=== PATIENT | male | born 1960 | race Caucasian/White ===

== ENCOUNTER 2023-12-26 05:24 | Inpatient (IN) | payer MEDICARE, BC, SELFPAY ==
[2023-12-26] VITALS (11 sets, daily range): BP systolic 140–168; BP diastolic 72–85; PULSE 87–104; RESP 16–18; TEMP 36.2–37.2; O2SAT 93–97; BMI 29.2; BMI 29.3
--- NOTE | 2023-12-26 06:14 | CRLHL7_ITS ---
For Patients: As a result of the Century Cures Act, medical imaging exams and procedure reports are released immediately into your electronic medical record. You may view this report before your referring provider. If you have questions, please contact your health care provider. INDICATION: Abdominal pain for 3 days TECHNIQUE: Axial images were obtained from the diaphragm to the pubic symphysis. Reformats were obtained in the coronal and sagittal plane. IV Contrast: 118 cc Isovue 370 Oral Contrast: None COMPARISON: None. FINDINGS: Lower chest: Bibasilar areas of discoid atelectasis. Liver: Normal in contour with a few scattered liver hypodensities in the 2-3 millimeter range. Gallbladder and bile ducts: Status post cholecystectomy. Normal diameter common duct. Spleen: Unremarkable. Normal in size without mass. Pancreas: Unremarkable. No mass or inflammation. Adrenal glands: Left adrenal nodule measuring 10 millimeters, indeterminate. Kidneys: Symmetric renal enhancement with 2.4 centimeter right renal cyst. Subcentimeter hypodensities within the left kidney which are too small for characterization. Vasculature: Atherosclerosis without abdominal aortic aneurysm. Subcentimeter retroperitoneal lymph nodes. GI tract: Dilated loops of proximal small bowel which gradually transition across the midline. At the point of transition there is prominent inflammation from an inflamed proximal sigmoid diverticula with fat stranding and pneumoperitoneum extending into the adjacent mesentery. Subcentimeter lymph nodes within the root of the mesentery and pericolonic mesentery. Pelvis: Unremarkable. Bones: Degenerative disc disease lumbar spine with 9 millimeter anterolisthesis of L5-S1 secondary to spondylolysis at L5. IMPRESSION: 1. Perforated proximal sigmoid diverticulitis with inflammation and free air in the perisigmoid mesentery although without a drainable abscess. 2. Small-bowel obstruction secondary to inflammation from the colonic perforation. 3. Other incidental findings as detailed above. Results discussed with Dr. Mohr at 0718 on 12/26/2023 Please note that all CT scans at this facility use dose modulation, iterative reconstruction, and/or weight-based dosing when appropriate to reduce radiation dose to as low as reasonably achievable. Dictated by Raúl Cristina MD @ 12/26/2023 7:24:15 AM (Electronically Signed)
--- NOTE | 2023-12-26 06:16 | ED_ITS ---
HPI - General Adult General Chief complaint: Diarrhea Stated complaint: Vomitting, diarrhea, constipated a few days ago Time Seen by Provider: 12/26/23 06:01 Source: patient and family Mode of arrival: ambulatory Limitations: no limitations History of Present Illness HPI narrative: 63-year-old male with prior history of diverticulitis last summer presents to the emergency department for evaluation of abdominal pain for the past 3 days. 4 days ago he noted thin but soft stools. The following night, he started having suprapubic area abdominal pain combine with bloating and some mild nausea. Since his stools had been thin, he assume this was constipation and took a colonoscopy prep amount of MiraLax. This did not improve his symptoms and actually made him feel a little bit more bloated. The following morning, he started having lots of loose stools. He still did not feel better so his who recommended an enema. Based on the description, it sounds like a mineral oil enema. He continued to have lots of stools but no improvement in symptoms. Last night he started vomiting, has had to bilious episodes. He is now having more pain localized in the suprapubic/slightly to the left area of his abdomen pain. Does not radiate. No bloody stools. No dysuria, no fever. Has had some chills and sweats but has not measured his temperature, did not think he had a fever. No prior history of similar symptoms, does not feel similar to his previous bout of diverticulitis. Based on his description, it sounds like he did have a follow-up colonoscopy at [facility] last fall. It did show diverticulosis but no other abnormalities per his report. As far as abdominal surgeries, he has had a prior right inguinal hernia repair and a cholecystectomy both of which were 40 years ago and were uncomplicated. Has not had any pain medication for his symptoms today. Past medical history notable for hypertension hyperlipidemia. Home meds are hydrochlorothiazide, losartan and rosuvastatin. Nonsmoker. No drug allergies. ROS notable for the abdominal and generalized symptoms as described above only, otherwise denies times 12 systems. Related Data Home Medications ?Medication ?Instructions ?Recorded ?Confirmed atorvastatin .ROUTE 12/26/23 losartan .ROUTE 12/26/23 Allergies Allergy/AdvReac Type Severity Reaction Status Date / Time No Known Drug Allergies Allergy Verified 12/26/23 05:50 PFSH PFSH Social History Smoking Status: Never smoker How often do you have a drink containing alcohol: never AUDIT-C Alcohol total score: 0 Non-prescribed substance use: denies use Exam Const: Vital Signs, click to edit/add: Vital Signs - 24 hr 12/26/23 05:45 Temperature 97.2 F L Pulse Rate [Pulse Oximeter] 104 H Respiratory Rate 16 Blood Pressure [Ri ght Upper Arm] 154/83 H Pulse Oximetry 97 Oxygen Delivery Me thod Room Air Documenting provider has reviewed patient's vital signs: yes Common normals: no apparent distress and alert General appearance: cooperative and well kempt HENMT: Common normals: normocephalic and oropharynx normal Head and scalp: normocephalic Face and sinus: normal facial exam Throat: posterior oropharynx normal Eye: Common normals: EOMs intact bilaterally, conjunctivae normal and no scleral icterus General eye: normal appearance of both eyes Conjunctiva: conjunctiva(e) normal Neck & C-Spine: Common normals: full ROM and no lymphadenopathy Resp: Common normals: normal respiratory effort, no use of accessory muscles and clear to auscultation bilaterally Effort & inspection: able to speak in complete sentences Auscultation: clear to auscultation bilaterally Cardio: Common normals: regular rate, regular rhythm, S1 normal heart sound, S2 normal heart sound and no murmurs Rate: regular rate Rhythm: regular rhythm Heart sounds: S1 normal and S2 normal GI: Other: Abdomen slightly distended. Bowel sounds are hyperactive in all 4 quadrants but equal. There is tenderness to palpation of the suprapubic and left lower quadrant area. Mild guarding but no rebound tenderness. No obvious mass. Cannot palpate edges of liver well. : Common normals: no CVA tenderness Bladder/kidney exam: no CVA tenderness Back & Pelvis: Common normals: no CVA tenderness and thoracic and lumbar spine normal to inspection Extremity: Common normals: normal to inspection, normal capillary refill and no pedal edema Neuro: Sensorium/orientation: alert Speech: speech normal Gait (neuro): normal gait Motor exam: no tremor noted and no movement abnormalities noted Psych: Appearance: well kempt Attitude: engaged Activity/motor behavior: appropriate eye contact Thought content: normal thought content Attention/concentration: attention grossly intact Memory/cognition: memory grossly intact Insight: insight good Judgement: judgment good Skin: Common normals: no rashes or lesions noted General skin exam: no rashes or lesions noted Course Course ED Course: 63-year-old male with lower abdominal pain suspicious for diverticulitis. Differential diagnosis also including appendicitis, obstruction, pancreatitis, colitis, nephrolithiasis, urinary infection, musculoskeletal etiology, radiculopathy, among others. Will place peripheral IV, began normal saline due to the vomiting. Give Zofran and Dilaudid, CT. Typical labs and urinalysis. Await findings. Reevaluation(s) Time of Reevaluation #1: 07:30 Reevaluation #1: Leukocytosis noted on labs otherwise labs as expected. CT showing perforated sigmoid diverticulitis, contained no abscess. Also SBO. Discussed with patient. Discussed with on-call surgeon. Will start ertapenem, sips of clear liquids only, maintenance fluids. Will admit to hospital, hospitalist contacted and accepts admission. Vital Signs Vital signs: Initial Vital Signs Temperature 97.2 F L 12/26/23 05:45 Temperature Source Temporal Artery Scan 12/26/23 05:45 Pulse Rate 104 H 12/26/23 05:45 Respiratory Rate 16 12/26/23 05:45 Blood Pressure 154/83 H 12/26/23 05:45 Blood Pressure Mean 106 H 12/26/23 05:45 Blood Pressure Position Sitting 12/26/23 05:45 Pulse Oximetry 97 12/26/23 05:45 Oxygen Delivery Method Room Air 12/26/23 05:45 Vital Signs Temperature 97.2 F L 12/26/23 05:45 Pulse Rate 104 H 12/26/23 05:45 Respiratory Rate 16 12/26/23 05:45 Blood Pressure 154/83 H 12/26/23 05:45 Pulse Oximetry 97 12/26/23 05:45 Oxygen Delivery Method Room Air 12/26/23 05:45 Temperature 97.2 F L 12/26/23 05:45 Pulse Rate 104 H 12/26/23 05:45 Respiratory Rate 16 12/26/23 05:45 Blood Pressure 154/83 H 12/26/23 05:45 Pulse Oximetry 97 12/26/23 05:45 Oxygen Delivery Method Room Air 12/26/23 05:45 Medications Administered Medications: Discontinued Medications Generic Name Dose Route Start Last Admin Trade Name Freq PRN Reason Stop Dose Admin Hydromorphone HCl 0.5 mg 12/26/23 06:14 12/26/23 06:34 Hydromorphone 0.5 Mg/0.5 Ml Inj IVP 12/26/23 06:15 0.5 mg ONCE ONE Administration Sodium Chloride 1,000 mls @ 1,000 mls/hr 12/26/23 06:15 12/26/23 06:35 0.9 % Sodium Chloride 1000 Ml IV 12/26/23 07:14 1,000 mls/hr .Q1H RUBY Administration Ondansetron HCl 4 mg 12/26/23 06:14 12/26/23 06:34 Ondansetron 2 Mg/Ml Inj IVP 12/26/23 06:15 4 mg ONCE ONE Administration Medical Decision Making Lab Data Lab results reviewed: Yes I reviewed the patient's lab results Lab results narrative: Leukocytosis with left shift. Normal lipase and liver enzymes, normal hemoglobin and creatinine. Labs: Lab Results 12/26/23 12/26/23 12/26/23 Range/Units : 06:25 Unknown WBC 17.15 H (4.50-11.00) K/uL RBC 4.89 (4.30-5.90) m/uL Hgb 14.8 (13.5-17.5) gm/dL Hct 44.1 (37.0-53.0) % MCV 90 (80-100) fL MCH 30 (26-34) pg MCHC 34 (32-36) gm/dL RDW Coeff of Adriana 13.2 (11.5-15.5) % Plt Count 298 (140-440) K/uL Neut % (Auto) 82.5 H (42.0-72.0) % Lymph % (Auto) 9.4 L (20-44) % [place] % (Auto) 7.6 (0.0-11.0) % Eos % (Auto) 0.1 (0.0-7.0) % Baso % (Auto) 0.1 (0.0-3.0) % Neut # (Auto) 14.10 H (1.7-7.0) K/uL Lymph # (Auto) 1.60 (0.90-2.90) K/uL [place] # (Auto) 1.30 H (0.00-0.90) K/UL Eos # (Auto) 0.00 (0.00-0.50) K/uL Baso # (Auto) 0.00 (0.00-0.30) K/uL Abs Immat Gran (auto) 0.10 (0.00-0.30) K/uL Imm/Tot Granulo (auto) 0.3 % Sodium 135 (135-149) mmol/L Potassium 3.5 L (3.6-5.1) mmol/L Chloride 94 L (96-114) mmol/L Carbon Dioxide 29 (20-32) mmol/L Anion Gap 12 (7-15) mEq/L BUN 17 (7-30) mg/dL Creatinine 1.1 (0.5-1.5) mg/dL Estimated Creat Clear 82.20 Estimated GFR 75 ml/min Glucose 139 H (60-115) mg/dL Lactate 1.6 (0.5-1.9) mmol/L Calcium 9.8 (8.4-10.6) mg/dL Total Bilirubin 1.5 (0.1-1.5) mg/dL AST 21 (12-35) U/L ALT 29 (4-50) U/L Alkaline Phosphatase 60 (40-150) U/L Total Protein 8.7 H (6.0-8.3) g/dL Albumin 4.9 (3.3-5.0) g/dL Lipase 18 L (23-300) U/L Urine Color Yellow (Yellow) Urine Appearance Clear (Clear) Urine pH 6.5 (5.0-8.5) Ur Specific [place] 1.020 (1.000-1.030) Urine Protein 2+ A (Negative) Urine Glucose (UA) Negative (Negative) Urine Ketones 1+ A (Negative) Urine Blood 1+ A (Negative) Urine Nitrite Negative (Negative) Urine Bilirubin 1+ A (Negative) Urine Urobilinogen 1.0 (0.2-1.0) Ur Leukocyte Esterase Negative (Negative) Urine RBC 5-10 A (0-2) Urine WBC 0-2 (0-5) Ur Squamous Epith Cells None (None-Few) Urine Bacteria None (None) POC Creatinine 1.3 (0.6-1.3) mg/dl Imaging Data CT scan - abdomen: Attestation: I have reviewed the pertinent imaging results. My impression: SBO and diverticulitis Radiologist's impression: IMPRESSION: 1. Perforated proximal sigmoid diverticulitis with inflammation and free air in the perisigmoid mesentery although without a drainable abscess. 2. Small-bowel obstruction secondary to inflammation from the colonic perforation. 3. Other incidental findings as detailed above. Discharge Plan Discharge Clinical Impression: Diverticulitis of colon with perforation, Partial small bowel obstruction Patient Disposition: Admitted As Inpatient
[2023-12-26 06:29] LABS: Appearance Urine Clear (Clear); Bilirubin Urine 1+ (Negative); Blood Urine 1+ (Negative); Color Urine Yellow (Yellow); Glucose Urine Negative (Negative); Ketones Urine 1+ (Negative); Leukocyte Esterase Urine Negative (Negative); Nitrite Urine Negative (Negative); Protein Urine 2+ (Negative); pH Urine 6.5 (5.0-8.5)
[2023-12-26] MEDS: HYDROmorphone 0.5 mg/0.5 ml inj IVP (06:34)
[2023-12-26] MEDS: ONDANSETRON 2 MG/ML inj 4 MG IVP ×2 (06:34→12:48)
[2023-12-26 06:35] LABS: Lactate* 1.6 mmol/L (0.5-1.9)
[2023-12-26 06:35] LABS: Creatinine, Point-of-Care* 1.3 mg/dl (0.6-1.3)
[2023-12-26] MEDS: 0.9 % SODIUM CHLORIDE 1000 ml 1,000 ML IV (06:35)
[2023-12-26 06:36] LABS: Basophils Percent Auto 0.1 % (0.0-3.0); Eosinophils Percent Auto 0.1 % (0.0-7.0); Hematocrit 44.1 % (37.0-53.0); Hemoglobin* 14.8 gm/dL (13.5-17.5); Immature Granulocytes Pct Auto 0.3 %; Lymphocytes Percent Auto 9.4 % (20-44); Mean Corpuscular HGB Conc 34 gm/dL (32-36); Mean Corpuscular Hemoglobin 30 pg (26-34); Mean Corpuscular Volume 90 fL (80-100); Monocytes Percent Auto 7.6 % (0.0-11.0); Neutrophils Percent Auto 82.5 % (42.0-72.0); Platelet Count* 298 K/uL (140-440); RDW Coefficient of Variation % 13.2 % (11.5-15.5); Red Blood Count 4.89 m/uL (4.30-5.90); White Blood Count* 17.15 K/uL (4.50-11.00)
[2023-12-26 06:37] LABS: Slide Review Reflex No
[2023-12-26 06:51] LABS: Albumin* 4.9 g/dL (3.3-5.0); Chloride* 94 mmol/L (96-114); Sodium* 135 mmol/L (135-149)
[2023-12-26 06:52] LABS: Potassium* 3.5 mmol/L (3.6-5.1)
[2023-12-26 06:53] LABS: Creatinine* 1.1 mg/dL (0.5-1.5); Estimated Glomerular Filt Rate 75 ml/min
[2023-12-26 06:54] LABS: Alkaline Phosphatase* 60 U/L (40-150); Anion Gap 12 mEq/L (7-15); Aspartate Amino Transferase* 21 U/L (12-35); Bilirubin Total* 1.5 mg/dL (0.1-1.5); Blood Urea Nitrogen* 17 mg/dL (7-30); Carbon Dioxide* 29 mmol/L (20-32); Lipase* 18 U/L (23-300); Total Protein* 8.7 g/dL (6.0-8.3)
[2023-12-26 06:55] LABS: Alanine Aminotransferase* 29 U/L (4-50); Calcium* 9.8 mg/dL (8.4-10.6); Glucose* 139 mg/dL (60-115)
[2023-12-26 07:11] LABS: Procalcitonin* 0.43 ng/mL (<0.50)
[2023-12-26 07:26] LABS: WBC Urine 0-2 (0-5)
[2023-12-26] MEDS: ERTAPENEM 1 GM in 0.9 % SODIUM CHLORIDE Mini-bag 100 ML IVPB (07:34)
[2023-12-26 07:51] LABS: C Reactive Protein* 29.2 mg/dL (0.5-1.0)
[2023-12-26] MEDS: LACTATED RINGERS 1000 ML 1,000 ML 150 ML IV (07:57)
[2023-12-26] MEDS: PANTOPRAZOLE SODIUM 40 MG INJ IVP (09:33)
[2023-12-26] MEDS: MORPHINE 4 MG/ML INJ IVP ×3 (09:33→18:34)
[2023-12-26] MEDS: LOSARTAN POTASSIUM 50 MG TABLET PO ×2 (09:48→20:43)
--- NOTE | 2023-12-26 10:13 | PM.IMHP1 ---
Hospitalist- H&P: HPI History of Present Illness Date Seen: 12/26/23 Chief complaint: Vomitting, diarrhea, constipated a few days ago Narrative: Burt Corbin is a 63 year old male past medical history significant for hypertension, hyperlipidemia, cholecystectomy and hernia repair 35 years ago is admitted to the medical floor from the ED for further management small bowel obstruction and perforated proximal sigmoid diverticulitis. Patient is seen with at bedside. Patient reports a 4 day history of abdominal pain without a bowel movement. Assumed he was constipated so began taking stool softeners and an enema. Has since had several loose stools. The abdominal pain persisted. Started vomiting last night. His made him come to the ED. Pain is now somewhat improved. Nausea has improved. No further vomiting since admission. Denies headache or dizziness. Denies chest pain or shortness of breath. No recent fevers. Quit smoking 7-8 years ago. Rare alcohol use. Retired from [employer]. Significant hearing loss related to that job. Cholecystectomy and hernia repair 35 years ago. Denies anesthesia complications. No known personal or family history of bleeding disorders. In the ED, CT shows small-bowel obstruction with perforated proximal sigmoid diverticulitis. WBC 17.15 with left shift, lactate 1.6, procalcitonin 0.43. The ED provider discussed with General surgery, Dr. Estrada, recommending admission with IVF, IV antibiotics, bedside consult later today. Review of Systems Narrative: REVIEW OF SYSTEMS: Complete review of systems performed and negative unless otherwise stated in HPI or below. [facility] Medical History (Updated 12/26/23 @ 10:49 by Michaela Ann PA-C) Hyperlipidemia ?E78.5 - Hyperlipidemia, unspecified (ICD-10) Hypertension ?I10 - Essential (primary) hypertension (ICD-10) Surgical History (Updated 12/26/23 @ 10:40 by Michaela Ann PA-C) H/O hernia repair ?Z98.890 - Other specified postprocedural states (ICD-10) ?Z87.19 - Personal history of other diseases of the digestive system (ICD-10) History of cholecystectomy ?Z90.49 - Acquired absence of other specified parts of digestive tract (ICD-10) Social History What is your current living situation?: I presently have a place to live Problems where you live: no known problems Problems where you live details: N/A In the past 12 months, utilities in danger of being shut off: no In past 12 months, lack of transportation kept you from medical appts, meetings, work, or getting things needed for daily living: no In the past 12 mos, have been you worried that your food would run out before you had money to buy more?: never true In the past 12 mos, the food you bought just didn't last and you didn't have money to buy more?: never true Smoking Status: Former smoker How often do you have a drink containing alcohol: monthly or less AUDIT-C Alcohol total score: 1 Non-prescribed substance use: denies use How often does anyone, including family, friends and others, physically hurt you: never How often does anyone, including family, friends and others, insult or talk down to you: never How often does anyone, including family, friends and others, threaten you with harm: never How often does anyone, including family, friends and others, scream or curse at you: never Meds Home Medications and Allergies Home Medications ?Medication ?Instructions ?Recorded ?Confirmed ?Type aspirin 325 mg tablet,delayed 325 mg PO DAILY 12/26/23 12/26/23 History release hydrochlorothiazide 12.5 mg tablet 12.5 mg PO DAILY 12/26/23 12/26/23 History losartan 50 mg tablet 50 mg PO BID 12/26/23 12/26/23 History rosuvastatin 5 mg tablet 5 mg PO DAILY 12/26/23 12/26/23 History Allergies Allergy/AdvReac Type Severity Reaction Status Date / Time No Known Drug Allergies Allergy Verified 12/26/23 05:50 Exam Narrative: Exam Narrative: PHYSICAL EXAM General: Pleasant, conversant, NAD HEENT: Normocephalic, atraumatic, sclera white, EOMI, oral mucosa moist Cardiovascular: RRR, S1S2. No pitting edema Pulmonary: CTA bilaterally without rhonchi, rales, expiratory wheezes. No dyspnea on room air Abdominal: Soft, mildly distended, tender left side Neurological: Alert, answering questions appropriately, cranial nerves intact, no focal findings Extremities: No gross joint deformity or swelling. AROMI. Neurovascularly intact Skin: Warm, dry. Const: Vital Signs, click to edit/add: Vital Signs - 24 hr 12/26/23 05:45 12/26/23 07:36 12/26/23 08:32 Temperature 97.2 F L Pulse Rate Pulse Rate [Pulse Oximeter] 104 H 91 Pulse Rate [orthos tatic lying Pulse Oximeter] Pulse Rate [orthos tatic sitting Puls e Oximeter] Pulse Rate [orthos tatic standing Pul se Oximeter] Respiratory Rate 16 18 Blood Pressure [Ri ght Upper Arm] 154/83 H 150/79 H Blood Pressure [or thostatic lying Le ft Arm] Blood Pressure [or thostatic sitting Left Arm] Blood Pressure [or thostatic standing Left Arm] Pulse Oximetry 97 95 97 [facility] Room Air Room Air 12/26/23 09:06 12/26/23 09:08 Temperature Pulse Rate 89 Pulse Rate [Pulse Oximeter] Pulse Rate [orthos tatic lying Pulse Oximeter] 88 Pulse Rate [orthos tatic sitting Puls e Oximeter] 90 Pulse Rate [orthos tatic standing Pul se Oximeter] 94 Respiratory Rate Blood Pressure [Ri ght Upper Arm] Blood Pressure [or thostatic lying Le ft Arm] 148/80 H Blood Pressure [or thostatic sitting Left Arm] 156/85 H Blood Pressure [or thostatic standing Left Arm] 168/82 H Pulse Oximetry Oxygen Delivery [facility] Hospitalist - H&P: Result Labs Labs: Short CBC 12/26/23 Range/Units Unknown WBC 17.15 H (4.50-11.00) K/uL Hgb 14.8 (13.5-17.5) gm/dL Hct 44.1 (37.0-53.0) % Plt Count 298 (140-440) K/uL BMP 12/26/23 Unknown Sodium 135 Potassium 3.5 L Chloride 94 L Carbon Dioxide 29 BUN 17 Creatinine 1.1 Glucose 139 H Calcium 9.8 Liver Function 12/26/23 Range/Units Unknown Total Bilirubin 1.5 (0.1-1.5) mg/dL AST 21 (12-35) U/L ALT 29 (4-50) U/L Alkaline Phosphatase 60 (40-150) U/L Albumin 4.9 (3.3-5.0) g/dL Urine 12/26/23 Range/Units 06:21 Urine Color Yellow (Yellow) Urine Appearance Clear (Clear) Urine pH 6.5 (5.0-8.5) Ur Specific [place] 1.020 (1.000-1.030) Urine Protein 2+ A (Negative) Urine Glucose (UA) Negative (Negative) Imaging CT scan - abdomen: Attestation: I have reviewed the pertinent imaging results. Radiologist's impression: FINDINGS: Lower chest: Bibasilar areas of discoid atelectasis. Liver: Normal in contour with a few scattered liver hypodensities in the 2-3 millimeter range. Gallbladder and bile ducts: Status post cholecystectomy. Normal diameter common duct. Spleen: Unremarkable. Normal in size without mass. Pancreas: Unremarkable. No mass or inflammation. Adrenal glands: Left adrenal nodule measuring 10 millimeters, indeterminate. Kidneys: Symmetric renal enhancement with 2.4 centimeter right renal cyst. Subcentimeter hypodensities within the left kidney which are too small for characterization. Vasculature: Atherosclerosis without abdominal aortic aneurysm. Subcentimeter retroperitoneal lymph nodes. GI tract: Dilated loops of proximal small bowel which gradually transition across the midline. At the point of transition there is prominent inflammation from an inflamed proximal sigmoid diverticula with fat stranding and pneumoperitoneum extending into the adjacent mesentery. Subcentimeter lymph nodes within the root of the mesentery and pericolonic mesentery. Pelvis: Unremarkable. Bones: Degenerative disc disease lumbar spine with 9 millimeter anterolisthesis of L5-S1 secondary to spondylolysis at L5. IMPRESSION: 1. Perforated proximal sigmoid diverticulitis with inflammation and free air in the perisigmoid mesentery although without a drainable abscess. 2. Small-bowel obstruction secondary to inflammation from the colonic perforation. 3. Other incidental findings as detailed above. Assessment and Plan Assessment and plan (1) Diverticulitis of colon with perforation: Problem comment: Abdominal pain, nausea with vomiting, induced diarrhea CT shows perforated proximal sigmoid diverticulitis with inflammation and free air in the perisigmoid mesentery although without a drainable abscess Leukocytosis with left shift, lactate and procalcitonin WNL, CRP 29.2, LFTs unremarkable, lipase 18, creatinine at baseline, BUN 17, afebrile ED provider discussed with General surgery, Dr. Estrada - bedside consult later today IVF, NPO for now Continue IV ertapenem Pain and nausea management as needed SCDs for VTE PPX, avoiding enoxaparin for now. Hold daily aspirin (he does not actually have a reason he takes this) Status: Acute (2) Small bowel obstruction: Problem comment: CT shows small-bowel obstruction secondary to inflammation from the colonic perforation Management as above Status: Acute (3) Hypertension: Problem comment: Continue losartan, hold HCTZ (creatinine 1.1, baseline 0.8-1.0) Status: Acute (4) Hyperlipidemia: Problem comment: Continue statin Status: Acute Plan Continue IV antibiotics, IVF, NPO for now. Await general surgery consultation. Total Time Spent Total Time Spent: Total time spent caring for the patient today was 60 minutes. This includes time spent for the visit reviewing the chart, time spent during the visit, time spent after the visit and documentation and planning in coordination of care.
--- NOTE | 2023-12-26 14:32 | PM.GSCN ---
History of Present Illness Consult details Date Seen: 12/26/23 Consult date: 12/26/23 Narrative: 63-year-old male was admitted to the hospital with abdominal pain. Patient states that he developed suprapubic abdominal pain last Friday. The pain was ?a lot?. He thought that he was constipated and on Friday took GoLYTELY prep. That initially did not help much and he also did an enema. He started to have bowel movements and had multiple liquid bowel movements since Friday. He had loose stools yesterday and had 1 today in the hospital. Yesterday, he was not passing gas but today had a couple of episodes of passing gas. Patient did not take his temperature at home. His abdominal pain was not improving and he had no appetite. He tried to eat soup yesterday but then was vomiting all night. He decided to come into the emergency room. His emergency room workup was personally reviewed by me. He was found to have an elevated WBC of 17. He CRP was 29. An abdominal CT was obtained that showed perforated sigmoid diverticulitis in the proximal sigmoid colon with a focus of free air in the perisigmoid mesentery. His proximal small bowel is dilated with possible transition point near the perforation. Patient had a colonoscopy 1 year ago and was found to have diverticulosis. He did not have any polyps removed. This is patient's first episode of diverticulitis. Review of Systems Narrative: General: no fevers HENT: no problems swallowing CV: no shortness of breath Resp: no cough GI: No nausea, vomiting, abdominal pain : no dysuria, no increased urinary frequency, no hematuria Skin: no new rashes Musculoskeletal: no back pain Neuro: no muscle weakness Psyche: no depression, no anxiety PFSH PFSH Medical History Hyperlipidemia ?E78.5 - Hyperlipidemia, unspecified (ICD-10) Hypertension ?I10 - Essential (primary) hypertension (ICD-10) Surgical History H/O hernia repair ?Z98.890 - Other specified postprocedural states (ICD-10) ?Z87.19 - Personal history of other diseases of the digestive system (ICD-10) History of cholecystectomy ?Z90.49 - Acquired absence of other specified parts of digestive tract (ICD-10) Social History (Updated 12/26/23 @ 14:38 by Soy Estrada MD) Narrative: Patient is visiting his fiancee but lives [place] of [facility]. What is your current living situation?: I presently have a place to live Problems where you live: no known problems Problems where you live details: N/A In the past 12 months, utilities in danger of being shut off: no In past 12 months, lack of transportation kept you from medical appts, meetings, work, or getting things needed for daily living: no In the past 12 mos, have been you worried that your food would run out before you had money to buy more?: never true In the past 12 mos, the food you bought just didn't last and you didn't have money to buy more?: never true Smoking Status: Former smoker How often do you have a drink containing alcohol: monthly or less AUDIT-C Alcohol total score: 1 Non-prescribed substance use: denies use How often does anyone, including family, friends and others, physically hurt you: never How often does anyone, including family, friends and others, insult or talk down to you: never How often does anyone, including family, friends and others, threaten you with harm: never How often does anyone, including family, friends and others, scream or curse at you: never Meds Home Medications and Allergies Home Medications ?Medication ?Instructions ?Recorded ?Confirmed ?Type aspirin 325 mg tablet,delayed 325 mg PO DAILY 12/26/23 12/26/23 History release hydrochlorothiazide 12.5 mg tablet 12.5 mg PO DAILY 12/26/23 12/26/23 History losartan 50 mg tablet 50 mg PO BID 12/26/23 12/26/23 History rosuvastatin 5 mg tablet 5 mg PO DAILY 12/26/23 12/26/23 History Allergies Allergy/AdvReac Type Severity Reaction Status Date / Time No Known Drug Allergies Allergy Verified 12/26/23 05:50 Exam Narrative: Exam Narrative: General appearance: Alert, cooperative, and in no distress Pulmonary: Chest symmetric, lungs clear bilaterally Cardiovascular Heart: Regular rate and rhythm, S1, S2, no murmurs/rubs/gallops Gastrointestinal Abdominal: soft, distended, tender to palpation mostly in the upper abdomen. Skin: Normal skin color, texture, and turgor. No rashes or lesions. Psychiatric: Alert, cooperative, normal affect. Const: Vital Signs, click to edit/add: Vital Signs - 24 hr 12/26/23 05:45 12/26/23 07:36 12/26/23 08:15 Temperature 97.2 F L 98 F Pulse Rate Pulse Rate [Apical ] 89 Pulse Rate [Pulse Oximeter] 104 H 91 Pulse Rate [orthos tatic lying Pulse Oximeter] Pulse Rate [orthos tatic sitting Puls e Oximeter] Pulse Rate [orthos tatic standing Pul se Oximeter] Respiratory Rate 16 18 18 Blood Pressure [Le ft Arm] 160/77 H Blood Pressure [Ri ght Upper Arm] 154/83 H 150/79 H Blood Pressure [or thostatic lying Le ft Arm] Blood Pressure [or thostatic sitting Left Arm] Blood Pressure [or thostatic standing Left Arm] Pulse Oximetry 97 95 97 Oxygen Delivery Me thod Room Air Room Air Room Air 12/26/23 08:15 12/26/23 08:32 12/26/23 09:06 Temperature Pulse Rate 89 Pulse Rate [Apical ] Pulse Rate [Pulse Oximeter] Pulse Rate [orthos tatic lying Pulse Oximeter] Pulse Rate [orthos tatic sitting Puls e Oximeter] Pulse Rate [orthos tatic standing Pul se Oximeter] Respiratory Rate 18 Blood Pressure [Le ft Arm] Blood Pressure [Ri ght Upper Arm] Blood Pressure [or thostatic lying Le ft Arm] Blood Pressure [or thostatic sitting Left Arm] Blood Pressure [or thostatic standing Left Arm] Pulse Oximetry 97 97 Oxygen Delivery Me thod Room Air Room Air 12/26/23 09:08 Temperature Pulse Rate Pulse Rate [Apical ] Pulse Rate [Pulse Oximeter] Pulse Rate [orthos tatic lying Pulse Oximeter] 88 Pulse Rate [orthos tatic sitting Puls e Oximeter] 90 Pulse Rate [orthos tatic standing Pul se Oximeter] 94 Respiratory Rate Blood Pressure [Le ft Arm] Blood Pressure [Ri ght Upper Arm] Blood Pressure [or thostatic lying Le ft Arm] 148/80 H Blood Pressure [or thostatic sitting Left Arm] 156/85 H Blood Pressure [or thostatic standing Left Arm] 168/82 H Pulse Oximetry Oxygen Delivery Me thod Results Labs Labs: Abnormal lab results 12/26/23 12/26/23 Range/Units 06:21 Unknown WBC 17.15 H (4.50-11.00) K/uL Neut % (Auto) 82.5 H (42.0-72.0) % Lymph % (Auto) 9.4 L (20-44) % Neut # (Auto) 14.10 H (1.7-7.0) K/uL Howell # (Auto) 1.30 H (0.00-0.90) K/UL Potassium 3.5 L (3.6-5.1) mmol/L Chloride 94 L (96-114) mmol/L Glucose 139 H (60-115) mg/dL C-Reactive Protein 29.2 H (0.5-1.0) mg/dL Total Protein 8.7 H (6.0-8.3) g/dL Lipase 18 L (23-300) U/L Urine Protein 2+ A (Negative) Urine Ketones 1+ A (Negative) Urine Blood 1+ A (Negative) Urine Bilirubin 1+ A (Negative) Urine RBC 5-10 A (0-2) Diabetes panel 12/26/23 Range/Units Unknown Sodium 135 (135-149) mmol/L Potassium 3.5 L (3.6-5.1) mmol/L Chloride 94 L (96-114) mmol/L Carbon Dioxide 29 (20-32) mmol/L BUN 17 (7-30) mg/dL Creatinine 1.1 (0.5-1.5) mg/dL Glucose 139 H (60-115) mg/dL Calcium 9.8 (8.4-10.6) mg/dL AST 21 (12-35) U/L ALT 29 (4-50) U/L Alkaline Phosphatase 60 (40-150) U/L Total Protein 8.7 H (6.0-8.3) g/dL Albumin 4.9 (3.3-5.0) g/dL Calcium panel 12/26/23 Range/Units Unknown Calcium 9.8 (8.4-10.6) mg/dL Albumin 4.9 (3.3-5.0) g/dL Pituitary panel 12/26/23 Range/Units Unknown Sodium 135 (135-149) mmol/L Potassium 3.5 L (3.6-5.1) mmol/L Chloride 94 L (96-114) mmol/L Carbon Dioxide 29 (20-32) mmol/L BUN 17 (7-30) mg/dL Creatinine 1.1 (0.5-1.5) mg/dL Glucose 139 H (60-115) mg/dL Calcium 9.8 (8.4-10.6) mg/dL Adrenal panel 12/26/23 Range/Units Unknown Sodium 135 (135-149) mmol/L Potassium 3.5 L (3.6-5.1) mmol/L Chloride 94 L (96-114) mmol/L Carbon Dioxide 29 (20-32) mmol/L BUN 17 (7-30) mg/dL Creatinine 1.1 (0.5-1.5) mg/dL Glucose 139 H (60-115) mg/dL Calcium 9.8 (8.4-10.6) mg/dL Total Bilirubin 1.5 (0.1-1.5) mg/dL AST 21 (12-35) U/L ALT 29 (4-50) U/L Alkaline Phosphatase 60 (40-150) U/L Total Protein 8.7 H (6.0-8.3) g/dL Albumin 4.9 (3.3-5.0) g/dL All other labs normal. Progress Note:A&P Assessment and plan (1) Diverticulitis of colon with perforation: Status: Acute Assessment and Plan: 63-year-old male presents with complicated sigmoid diverticulitis and reactive small bowel obstruction. I discussed with the patient and his fiancee his laboratory and CT findings. His CT showed a contained focus of free air in the adjacent mesentery. His small bowel is most likely walling that air off, resulting in reactive small-bowel obstruction. We will continue IV antibiotics and NPO. Patient is passing gas and had a bowel movement today however, I recommended to place NG tube to allow bowel rest. Will repeat his WBC tomorrow. For now I would recommend to continue with conservative management. I discussed with the patient that if there are no changes overnight, one of my surgery partners will see him over the weekend.
--- NOTE | 2023-12-26 14:52 | CRLHL7_ITS ---
For Patients: As a result of the Century Cures Act, medical imaging exams and procedure reports are released immediately into your electronic medical record. You may view this report before your referring provider. If you have questions, please contact your health care provider. INDICATION: Nasogastric tube placement. COMPARISON: Same day CT abdomen and pelvis. TECHNIQUE: AP portable radiograph centered on the upper abdomen and lower chest, excluding the lower abdomen/pelvis and lateral aspect of the abdomen on the right and left. FINDINGS: Nasogastric tube positioned with its radiolucent side hole at the gastroesophageal junction and its tip 7.5 cm beyond. The tube can be advanced (e.g. 5 cm). Clustered loops of dilated small bowel are noted incidentally in the left upper abdomen. IMPRESSION: Nasogastric tube positioned with its radiolucent side hole at the gastroesophageal junction and its tip 7.5 cm beyond. The tube can be advanced (e.g. 5 cm). Dictated by Amilcar Palma MD @ 12/26/2023 3:23:57 PM (Electronically Signed)
[2023-12-26] MEDS: LACTATED RINGERS 1000 ML 1,000 ML 125 ML IV ×2 (16:00→22:51)
[2023-12-26] MEDS: ROSUVASTATIN CALCIUM 10 MG TABLET 5 MG PO (20:43)
[2023-12-27] VITALS (7 sets, daily range): BP systolic 142–157; BP diastolic 68–82; PULSE 80–90; RESP 18; TEMP 36.3–37.2; O2SAT 92–96
[2023-12-27] MEDS: SODIUM CHLORIDE 0.9 % (FLUSH) 10 ML SYRINGE 5 ML IVF ×2 (02:42→09:35)
[2023-12-27] MEDS: MORPHINE 4 MG/ML INJ IVP (02:42)
--- NOTE | 2023-12-27 05:26 | PC.NURSE ---
Shift note: Pt continue on NG tube suction intermittently. NG tube at 60cm ana. About 200ml of greenish gastric content suctioned tonight. Abdomen appeared distended. No fever, nausea and vomiting recorded. Minimal pain level of 5 reported and PRN given as ordered. Pt had adequate sleep. NPO status maintained.
[2023-12-27 06:39] LABS: Hematocrit 36.8 % (37.0-53.0); Hemoglobin* 12.2 gm/dL (13.5-17.5); Mean Corpuscular HGB Conc 33 gm/dL (32-36); Mean Corpuscular Hemoglobin 30 pg (26-34); Mean Corpuscular Volume 91 fL (80-100); Platelet Count* 281 K/uL (140-440); Red Blood Count 4.06 m/uL (4.30-5.90); White Blood Count* 7.25 K/uL (4.50-11.00)
[2023-12-27 06:57] LABS: Chloride* 101 mmol/L (96-114); Potassium* 3.3 mmol/L (3.6-5.1); Sodium* 135 mmol/L (135-149)
[2023-12-27 06:59] LABS: Creatinine* 0.9 mg/dL (0.5-1.5); Est. Creatinine Clearance* 90.42; Estimated Glomerular Filt Rate 95 ml/min; Lipase* 24 U/L (23-300)
[2023-12-27 07:00] LABS: Anion Gap 8 mEq/L (7-15); Blood Urea Nitrogen* 19 mg/dL (7-30); Calcium* 8.7 mg/dL (8.4-10.6); Carbon Dioxide* 26 mmol/L (20-32); Glucose* 101 mg/dL (60-115)
[2023-12-27 07:01] LABS: Slide Review Reflex No
[2023-12-27 07:21] LABS: C Reactive Protein* 14.7 mg/dL (0.5-1.0)
[2023-12-27] MEDS: LACTATED RINGERS 1000 ML 1,000 ML 125 ML IV ×2 (07:30→18:12)
[2023-12-27] MEDS: PANTOPRAZOLE SODIUM 40 MG INJ IVP (09:34)
[2023-12-27] MEDS: LOSARTAN POTASSIUM 50 MG TABLET PO ×2 (09:34→20:48)
[2023-12-27] MEDS: ERTAPENEM 1 GM in 0.9 % SODIUM CHLORIDE Mini-bag 100 ML IVPB (09:35)
--- NOTE | 2023-12-27 11:36 | PM.GSPN ---
Subjective Subjective Date Seen: 12/27/23 Interval history: Patient is doing much better this morning. Denies any abdominal pain. He hasn't needed pain medicine since 3am. He has been walking the halls. Is passing gas and having liquid stool. Denies any nausea. Is feeling hungry. Exam Narrative: Exam Narrative: General: Alert and oriented, no acute distress. Nontoxic Abdomen: Soft, nontender to palpation. No distention. Active bowel sounds Const: Vital Signs, click to edit/add: Vital Signs - 24 hr 12/26/23 15:00 12/26/23 15:00 12/26/23 15:00 Temperature 98.0 F Pulse Rate 96 Pulse Rate [Apical ] 96 96 Respiratory Rate 18 18 Blood Pressure [Le ft Arm] 152/79 H Pulse Oximetry 94 Oxygen Delivery Me thod Room Air 12/26/23 19:00 12/26/23 22:47 12/26/23 22:47 Temperature 98.9 F 98.2 F Pulse Rate Pulse Rate [Apical ] 95 96 96 Respiratory Rate 18 18 18 Blood Pressure [Le ft Arm] 146/78 H 140/72 H Pulse Oximetry 93 93 Oxygen Delivery Me thod Room Air Room Air 12/26/23 23:00 12/27/23 02:38 Temperature 98.2 F Pulse Rate 92 Pulse Rate [Apical ] 90 Respiratory Rate 18 Blood Pressure [Le ft Arm] 153/72 H Pulse Oximetry 94 Oxygen Delivery Me thod Room Air Labs/Imaging Labs Labs: Leukocytosis has improved (17--7). CRP trending down (29--14) Imaging Imaging: No new imaging. Progress Note:A&P Assessment and plan (1) Small bowel obstruction: Status: Acute (2) Diverticulitis of colon with perforation: Status: Acute Plan Patient is hospital day 2 for diverticulitis complicated by contained perforation and associated small-bowel obstruction. An NG tube was placed on admission. Overnight patient with improved abdominal pain. Minimal NG tube output this morning, which is clear in appearance. He has been having liquidy stools and passing gas. Afebrile overnight. WBC has normalized. CRP is trending in the right direction. He continues on IV ertapenem. -NG tube clamping trial this morning. Recommend clamping for a 4 hour period and measuring residuals. If residuals are less than 200 okay to remove and start clear liquids. -continue IV ertapenem, patient will do a 10 day course of IV antibiotics -encourage ambulation -sparing use of narcotic pain medicine -SCDs and ambulation for DVT prophylaxis
--- NOTE | 2023-12-27 16:17 | PM.IMPN1 ---
Progress Note: A&P Assessment and plan (1) Diverticulitis of colon with perforation: Problem details: Abdominal pain, nausea with vomiting, induced diarrhea on admission. CT shows perforated proximal sigmoid diverticulitis with inflammation and free air in the perisigmoid mesentery although without a drainable abscess Leukocytosis with left shift, lactate and procalcitonin WNL, CRP 29.2, LFTs unremarkable, lipase 18, creatinine at baseline, BUN 17, afebrile Consult General surgery. Initially treated with NG suctioning now removed after 1 day. Clinically remarkably better. Continue IV ertapenem inpatient then outpatient when tolerating a full liquid diet Pain and nausea management as needed SCDs for VTE PPX, avoiding enoxaparin for now. Status: Acute (2) Small bowel obstruction: Problem details: CT shows small-bowel obstruction secondary to inflammation from the colonic perforation NG suctioning for 1 day. SBO clinically resolved. NG removed. Status: Acute (3) Hyperlipidemia: Problem details: Continue statin Status: Acute (4) Hypertension: Problem details: Continue losartan, hold HCTZ (creatinine 1.1, baseline 0.8-1.0) Status: Acute Plan Continue in hospital for IV antibiotics and monitoring of diverticulitis and small bowel obstruction. Anticipate prolonged course of IV antibiotics in the outpatient setting if continued clinical improvement Time Spent With Patient Total time spent: Total time spent today is 40 minutes, 30 minutes in coordination of care discussing with patient and other providers ongoing evaluation management of perforated diverticulitis and small bowel obstruction Subjective Date Seen: 12/27/23 Interval history: Admission HPI: Burt Corbin is a 63 year old male past medical history significant for hypertension, hyperlipidemia, cholecystectomy and hernia repair 35 years ago is admitted to the medical floor from the ED for further management small bowel obstruction and perforated proximal sigmoid diverticulitis. Patient is seen with at bedside. Patient reports a 4 day history of abdominal pain without a bowel movement. Assumed he was constipated so began taking stool softeners and an enema. Has since had several loose stools. The abdominal pain persisted. Started vomiting last night. His made him come to the ED. Pain is now somewhat improved. Nausea has improved. No further vomiting since admission. Denies headache or dizziness. Denies chest pain or shortness of breath. No recent fevers. Quit smoking 7-8 years ago. Rare alcohol use. Retired from [employer]. Significant hearing loss related to that job. Cholecystectomy and hernia repair 35 years ago. Denies anesthesia complications. No known personal or family history of bleeding disorders. In the ED, CT shows small-bowel obstruction with perforated proximal sigmoid diverticulitis. WBC 17.15 with left shift, lactate 1.6, procalcitonin 0.43. The ED provider discussed with General surgery, Dr. Estrada, recommending admission with IVF, IV antibiotics, bedside consult later today. Yesterday patient had NG tube to suction. Overnight he reports he has been feeling fine. He is having no abdominal pain. Minimal output from the NG tube. He is passing gas and small amount of liquid stool. Today the NG tube was clamped. After 4 hours there was 50 mL of residual aspirated through the NG. He has no fever. He has been up walking in the hallway without difficulty. Exam Narrative: Exam Narrative: He is alert and appears in no distress. Breathing is unlabored. Cardiovascular: S1, S2, regular rate and rhythm. Abdomen: Bowel sounds are present. Abdomen is soft and there is no tenderness. No mass. Extremities without edema. He is observed walking the ahmadi without difficulties. Const: Vital Signs, click to edit/add: Vital Signs - 24 hr 12/26/23 19:00 12/26/23 22:47 12/26/23 22:47 Temperature 98.9 F 98.2 F Pulse Rate Pulse Rate [Apical ] 95 96 96 Respiratory Rate 18 18 18 Blood Pressure [Le ft Arm] 146/78 H 140/72 H Pulse Oximetry 93 93 Oxygen Delivery Me thod Room Air Room Air 12/26/23 23:00 12/27/23 02:38 12/27/23 07:20 Temperature 98.2 F Pulse Rate 92 Pulse Rate [Apical ] 90 80 Respiratory Rate 18 18 Blood Pressure [Le ft Arm] 153/72 H Pulse Oximetry 94 Oxygen Delivery Me thod Room Air 12/27/23 07:20 12/27/23 08:03 12/27/23 11:45 Temperature 97.4 F L 97.8 F Pulse Rate 82 Pulse Rate [Apical ] 80 81 Respiratory Rate 18 18 Blood Pressure [Le ft Arm] 142/70 H 154/68 H Pulse Oximetry 95 96 Oxygen Delivery Me thod Room Air Room Air 12/27/23 15:00 12/27/23 15:00 12/27/23 15:00 Temperature 97.4 F L Pulse Rate 87 Pulse Rate [Apical ] 82 82 Respiratory Rate 18 18 Blood Pressure [Le ft Arm] 155/69 H Pulse Oximetry 92 Oxygen Delivery Me thod Room Air Documenting provider has reviewed patient's vital signs: yes Labs Labs: Laboratory Results - last 24 hr 12/27/23 05:50 WBC 7.25 RBC 4.06 L Hgb 12.2 L Hct 36.8 L MCV 91 MCH 30 MCHC 33 Plt Count 281 Sodium 135 Potassium 3.3 L Chloride 101 Carbon Dioxide 26 Anion Gap 8 BUN 19 Creatinine 0.9 Estimated Creat Clear 90.42 Estimated GFR 95 Glucose 101 Calcium 8.7 C-Reactive Protein 14.7 H Lipase 24
[2023-12-27] MEDS: OXYCODONE 5 MG TABLET PO ×2 (18:12→20:52)
--- NOTE | 2023-12-27 18:38 | PC.NURSE ---
PATIENT AFEBRILE. NG CLAMPED THIS AM PER DR. GARCIA. PATIENT AMBULATING FREQUENTLY IN HALLWAY INDEPENDENTLY AND TOLERATING WELL. AT 1530, NG RETURNED TO SUCTION WITH ONLY 50ML OUTPUT. DR. HERNANDEZ UPDATED AND ORDER TO DC NG OBTAINED AND COMPLETED. PATIENT STARTED ON CLEAR LIQUID DIET AND TOLERATING WELL AT THIS TIME WITH NO C/O N/V. PATIENT'S BOWEL SOUNDS ACTIVE AND PASSING GAS. SEVERAL LOOSE STOOLS TODAY.
[2023-12-27] MEDS: ROSUVASTATIN CALCIUM 10 MG TABLET 5 MG PO (20:47)
[2023-12-27] MEDS: LORazepam 0.5 MG TABLET PO (20:52)
[2023-12-28] MEDS: LACTATED RINGERS 1000 ML 1,000 ML 125 ML IV (01:33)
[2023-12-28 03:00] VITALS: BP 144/75; PULSE 78; RESP 18; TEMP 37.2; O2SAT 92
--- NOTE | 2023-12-28 05:08 | PC.NURSE ---
Shift note: Pt is tolerating clear liquid diet well without N/V and abdominal pain. Abdomen continue to appear distended but active bowel sound, Pt has not pass gas and no BM yet. Pt had adequate sleep. Alert and oriented. No fever recorded.
[2023-12-28 06:48] LABS: Hematocrit 33.2 % (37.0-53.0); Hemoglobin* 10.9 gm/dL (13.5-17.5); Mean Corpuscular HGB Conc 33 gm/dL (32-36); Mean Corpuscular Hemoglobin 30 pg (26-34); Mean Corpuscular Volume 92 fL (80-100); Platelet Count* 265 K/uL (140-440); Red Blood Count 3.63 m/uL (4.30-5.90); White Blood Count* 8.63 K/uL (4.50-11.00)
[2023-12-28 06:59] LABS: Chloride* 102 mmol/L (96-114); Sodium* 135 mmol/L (135-149)
[2023-12-28 07:00] VITALS: PULSE 85
[2023-12-28 07:00] LABS: Potassium* 3.2 mmol/L (3.6-5.1)
[2023-12-28 07:02] LABS: Anion Gap 6 mEq/L (7-15); Carbon Dioxide* 27 mmol/L (20-32); Est. Creatinine Clearance* 90.42; Estimated Glomerular Filt Rate 84 ml/min
[2023-12-28 07:03] LABS: Blood Urea Nitrogen* 16 mg/dL (7-30); Calcium* 8.1 mg/dL (8.4-10.6); Glucose* 99 mg/dL (60-115)
[2023-12-28 07:06] LABS: C Reactive Protein* 7.3 mg/dL (0.5-1.0)
[2023-12-28 07:12] LABS: Slide Review Reflex No
[2023-12-28 07:30] VITALS: BP 163/90; PULSE 80; RESP 18; TEMP 36.6; O2SAT 95
[2023-12-28] MEDS: PANTOPRAZOLE SODIUM 40 MG INJ IVP (09:10)
[2023-12-28] MEDS: ERTAPENEM 1 GM in 0.9 % SODIUM CHLORIDE Mini-bag 100 ML IVPB (09:10)
[2023-12-28] MEDS: LOSARTAN POTASSIUM 50 MG TABLET PO (09:10)
[2023-12-28] MEDS: SODIUM CHLORIDE 0.9 % (FLUSH) 10 ML SYRINGE 5 ML IVF (09:11)
--- NOTE | 2023-12-28 10:24 | PM.GSPN ---
Subjective Subjective Date Seen: 12/28/23 Interval history: Patient is doing well this morning. He had full liquids for breakfast and ate some ice cream. Food is going well with no reported nausea. No increase in abdominal pain. He last had pain medicine yesterday afternoon after the NG tube was removed. He says it was more ?cramping pain?. He continues to pass gas in have bowel movements. He is anxious to leave the hospital. No fevers overnight. Exam Narrative: Exam Narrative: General: Alert and oriented, no acute distress. Nontoxic Abdomen: Soft, nontender and nondistended. Benign abdomen. Const: Vital Signs, click to edit/add: Vital Signs - 24 hr 12/27/23 11:45 12/27/23 15:00 12/27/23 15:00 Temperature 97.8 F Pulse Rate 87 Pulse Rate [Apical ] 81 82 Respiratory Rate 18 18 Blood Pressure [Le ft Arm] 154/68 H Pulse Oximetry 96 Oxygen Delivery Me thod Room Air 12/27/23 15:00 12/27/23 19:00 12/27/23 22:43 Temperature 97.4 F L 99 F Pulse Rate 81 Pulse Rate [Apical ] 82 87 Respiratory Rate 18 18 Blood Pressure [Le ft Arm] 155/69 H 157/80 H Pulse Oximetry 92 92 Oxygen Delivery Me thod Room Air Room Air 12/27/23 22:43 12/27/23 22:43 12/28/23 03:00 Temperature 98.9 F 99 F Pulse Rate Pulse Rate [Apical ] 81 81 78 Respiratory Rate 18 18 18 Blood Pressure [Le ft Arm] 155/82 H 144/75 H Pulse Oximetry 95 92 Oxygen Delivery Me thod Room Air Room Air 12/28/23 07:00 12/28/23 07:30 12/28/23 07:30 Temperature 97.8 F Pulse Rate 85 Pulse Rate [Apical ] 80 80 Respiratory Rate 18 18 Blood Pressure [Le ft Arm] 163/90 H Pulse Oximetry 95 Oxygen Delivery Me thod Room Air Labs/Imaging Labs Labs: No leukocytosis. CRP continues to trend down (7) Imaging Imaging: No new imaging Progress Note:A&P Assessment and plan (1) Small bowel obstruction: Status: Acute (2) Diverticulitis of colon with perforation: Status: Acute Plan Patient is hospital day 3 for diverticulitis complicated by contained perforation and associated small-bowel obstruction. His NG tube was removed yesterday. He continues to have bowel movements. Diet was advanced to full liquids. Afebrile overnight. WBC within normal limits. CRP is trending in the right direction. He continues on IV ertapenem, which will be continued at the time of discharge. -recommend full liquids at the time of discharge. Low-fiber diet. -continue IV ertapenem -encourage ambulation -SCDs and ambulation for DVT prophylaxis Patient will follow-up with myself on 01/01/2024. Will discussed at that time when to advance diet and complete course of antibiotics. Of note, patient does live outside of [facility] greater than 100 miles away from [place]. He does visit here often since his fiancee lives in town.
[2023-12-28] MEDS: POTASSIUM BICARB 25 MEQ EFFERVESCENT TAB 50 MEQ PO (12:00)
--- NOTE | 2023-12-28 13:31 | PM.DS1 ---
DS: Providers Provider Date Seen: 12/28/23 Date of admission: 12/26/23 08:07 Primary care physician: Not a Local Provider Admitting Clinician: Mildred Duvall MD Attending Physician on discharge: Rudy Guidry MD Date of Discharge: 12/28/23 DS: Diagnosis Discharge Diagnosis (1) Diverticulitis of colon with perforation: Status: Acute Problem details: Abdominal pain, nausea with vomiting, induced diarrhea on admission. CT shows perforated proximal sigmoid diverticulitis with inflammation and free air in the perisigmoid mesentery although without a drainable abscess Leukocytosis with left shift, lactate and procalcitonin WNL, CRP 29.2, LFTs unremarkable, lipase 18, creatinine at baseline, BUN 17, afebrile Consult General surgery. Initially treated with NG suctioning now removed after 1 day. Clinically remarkably better. Continue IV ertapenem inpatient then outpatient when tolerating a full liquid diet (2) Small bowel obstruction: Status: Acute Problem details: CT shows small-bowel obstruction secondary to inflammation from the colonic perforation NG suctioning for 1 day. SBO clinically resolved. NG removed. Tolerating full liquid diet at discharge DS: Summary Hospital Course Hospital Course: Admission HPI: Burt Corbin is a 63 year old male past medical history significant for hypertension, hyperlipidemia, cholecystectomy and hernia repair 35 years ago is admitted to the medical floor from the ED for further management small bowel obstruction and perforated proximal sigmoid diverticulitis. Patient is seen with at bedside. Patient reports a 4 day history of abdominal pain without a bowel movement. Assumed he was constipated so began taking stool softeners and an enema. Has since had several loose stools. The abdominal pain persisted. Started vomiting last night. His made him come to the ED. Pain is now somewhat improved. Nausea has improved. No further vomiting since admission. Denies headache or dizziness. Denies chest pain or shortness of breath. No recent fevers. Quit smoking 7-8 years ago. Rare alcohol use. Retired from [employer]. Significant hearing loss related to that job. Cholecystectomy and hernia repair 35 years ago. Denies anesthesia complications. No known personal or family history of bleeding disorders. In the ED, CT shows small-bowel obstruction with perforated proximal sigmoid diverticulitis. WBC 17.15 with left shift, lactate 1.6, procalcitonin 0.43. The ED provider discussed with General surgery, Dr. Estrada, recommending admission with IVF, IV antibiotics, bedside consult later today. Yesterday patient had NG tube to suction. Overnight he reports he has been feeling fine. He is having no abdominal pain. Minimal output from the NG tube. He is passing gas and small amount of liquid stool. Today the NG tube was clamped. After 4 hours there was 50 mL of residual aspirated through the NG. He has no fever. He has been up walking in the hallway without difficulty. December 27: NG removed yesterday. Tolerated clear liquids very well. Today started on full liquid diet and tolerated this very well. No significant pain. No nausea. He has had small bowel movement and continues to pass gas. No fever. Status at Discharge Overall status at discharge: patient is progressing back to baseline Time Spent with Patient Time attestation: Total time spent providing and/or coordinating discharge services: 40 mins. Time spent: Greater than 30 minutes Exam Narrative: Exam Narrative: He is alert and in no distress. Abdomen with bowel sounds are present. Abdomen is soft and nontender. There is no mass. Extremities without significant edema. Const: Vital Signs, click to edit/add: Vital Signs - 24 hr 12/27/23 15:00 12/27/23 15:00 12/27/23 15:00 Temperature 97.4 F L Pulse Rate 87 Pulse Rate [Apical ] 82 82 Respiratory Rate 18 18 Blood Pressure [Le ft Arm] 155/69 H Pulse Oximetry 92 Oxygen Delivery Me thod Room Air 12/27/23 19:00 12/27/23 22:43 12/27/23 22:43 Temperature 99 F Pulse Rate 81 Pulse Rate [Apical ] 87 81 Respiratory Rate 18 18 Blood Pressure [Le ft Arm] 157/80 H Pulse Oximetry 92 Oxygen Delivery Me thod Room Air 12/27/23 22:43 12/28/23 03:00 12/28/23 07:00 Temperature 98.9 F 99 F Pulse Rate 85 Pulse Rate [Apical ] 81 78 Respiratory Rate 18 18 Blood Pressure [Le ft Arm] 155/82 H 144/75 H Pulse Oximetry 95 92 Oxygen Delivery Pa thod Room Air Room Air 12/28/23 07:30 12/28/23 07:30 Temperature 97.8 F Pulse Rate Pulse Rate [Apical ] 80 80 Respiratory Rate 18 18 Blood Pressure [Le ft Arm] 163/90 H Pulse Oximetry 95 Oxygen Delivery Me thod Room Air Documenting provider has reviewed patient's vital signs: yes DS: Data Data Completed and Pending Labs on day of discharge: Labs from last 24 hours 12/28/23 05:52 WBC 8.63 RBC 3.63 L Hgb 10.9 L Hct 33.2 L MCV 92 MCH 30 MCHC 33 Plt Count 265 Sodium 135 Potassium 3.2 L Chloride 102 Carbon Dioxide 27 Anion Gap 6 L BUN 16 Creatinine 1.0 Estimated Creat Clear 90.42 Estimated GFR 84 Glucose 99 Calcium 8.1 L C-Reactive Protein 7.[address] scan - abdomen: Radiologist's impression: INDICATION: Abdominal pain for 3 days TECHNIQUE: Axial images were obtained from the diaphragm to the pubic symphysis. Reformats were obtained in the coronal and sagittal plane. IV Contrast: 118 cc Isovue 370 Oral Contrast: None COMPARISON: None. FINDINGS: Lower chest: Bibasilar areas of discoid atelectasis. Liver: Normal in contour with a few scattered liver hypodensities in the 2-3 millimeter range. Gallbladder and bile ducts: Status post cholecystectomy. Normal diameter common duct. Spleen: Unremarkable. Normal in size without mass. Pancreas: Unremarkable. No mass or inflammation. Adrenal glands: Left adrenal nodule measuring 10 millimeters, indeterminate. Kidneys: Symmetric renal enhancement with 2.4 centimeter right renal cyst. Subcentimeter hypodensities within the left kidney which are too small for characterization. Vasculature: Atherosclerosis without abdominal aortic aneurysm. Subcentimeter retroperitoneal lymph nodes. GI tract: Dilated loops of proximal small bowel which gradually transition across the midline. At the point of transition there is prominent inflammation from an inflamed proximal sigmoid diverticula with fat stranding and pneumoperitoneum extending into the adjacent mesentery. Subcentimeter lymph nodes within the root of the mesentery and pericolonic mesentery. Pelvis: Unremarkable. Bones: Degenerative disc disease lumbar spine with 9 millimeter anterolisthesis of L5-S1 secondary to spondylolysis at L5. IMPRESSION: 1. Perforated proximal sigmoid diverticulitis with inflammation and free air in the perisigmoid mesentery although without a drainable abscess. 2. Small-bowel obstruction secondary to inflammation from the colonic perforation. 3. Other incidental findings as detailed above. Discharge Plan Discharge Disposition: Home, Self-Care Date of Admission: 12/26/23 08:07 Attending Provider on Discharge: Jaime Guidry Consulting Providers: Soy Estrada; Ngozi Walker Primary Care Provider: Provider,Not a Local Condition: Improved Anticipated Discharge Date/Time: 12/28/23 14:00 Discharge Medications: Continued losartan 50 mg tablet 50 mg PO BID rosuvastatin 5 mg tablet 5 mg PO DAILY hydrochlorothiazide 12.5 mg tablet 12.5 mg PO DAILY aspirin 325 mg tablet,delayed release (DR/EC) 325 mg PO DAILY Discharge Orders: Discharge Order (Routine); Ordered 12/28/23 Ordered By: Jaime Guidry Patient Education: Ertapenem (By injection), Diverticulitis (DC), Low Fiber Diet (DC), Perforated Bowel (DC), Full Liquid Diet (DC) Additional Instructions: Return to [facility] every day for IV antibiotic, Ertapenem, until you see Dr Walker on December 31. Continue on a full liquid diet until your follow-up appointment. Avoid high-fiber foods. Follow-up with Dr. Walker on 01/01/2024 at the [facility]. Please call if you are experiencing severe pain, nausea, vomiting, difficulty urinating or fever. Activity Level: No strenuous activity Discharge Diet: Low Fiber and Full Liquid Follow Up Appointments: Ngozi Walker MD [Staff Physician] - Provider,Not a Local [Primary Care Provider] - 01/01/24 2:45 pm (Follow Up with Dr. Walker on December 31 at 2:45 at [facility]. ) Forms: [employer] ([employer]) Info Instructions Discharge Comments: Return to [facility] Med/Surg department for IV antibiotic infusions 12/28, 12/29, 12/30 at 2:30 and 12/31 at 1:30. Labs will be drawn on here, appt terry/Aaron @2:45 after infusion.
--- NOTE | 2023-12-28 14:01 | PC.NURSE ---
PATIENT AFEBRILE. DENIES ABDOMINAL PAIN OR N/V. DIET ADVANCED TO FULL LIQUIDS AND PATIENT TOLERATING WELL. SALINE LOCK DC'D. REVIEWED DC INSTRUCTIONS WITH PATIENT AND HIS AND BOTH DENIED QUESTIONS OR CONCERNS. PATIENTS DC'D HOME VIA .
== END 2023-12-28 13:40 | disposition home or self-care (01) | DRG 392 ==
LOC: ED 07:31 → MEDSURG 12-28 10:23
PROVIDERS: Physician Assistant; Admitting Provider Family Medicine; Emergency Provider Family Medicine; Visit Provider Family Medicine
DX: K57.20 Diverticulitis of large intestine with perforation and abscess without bleeding (principal); K56.699 Other intestinal obstruction unspecified as to partial versus complete obstruction; I10 Essential (primary) hypertension; E78.5 Hyperlipidemia, unspecified
CPT/HCPCS: 36415; 74018; 74177; 80048; 80053; 81001; 81003; 82565; 83605; 83690; 84145; 85025; 85027; 86140; 99283; 99284; 99285; A9270; C9113; J1170; J1335; J2270; J2405; J7030; J7120; Q9967

== ENCOUNTER 2024-01-07 09:30 | Outpatient (RCR) | payer MEDICARE, BC, SELFPAY ==
[2023-12-29] MEDS: ERTAPENEM 1 GM in 0.9 % SODIUM CHLORIDE 100 ml 100 ML IVPB (15:11)
[2023-12-29] MEDS: 0.9 % SODIUM CHLORIDE 250 ml IV (16:24)
[2023-12-29] MEDS: SODIUM CHLORIDE 0.9 % (FLUSH) 10 ML SYRINGE IVF (16:24)
[2023-12-30 14:54] VITALS: BP 136/72; PULSE 80; RESP 16; TEMP 37.1; O2SAT 98
[2023-12-30] MEDS: ERTAPENEM 1 GM in 0.9 % SODIUM CHLORIDE 100 ml 100 ML IVPB (15:13)
[2023-12-30] MEDS: SODIUM CHLORIDE 0.9 % (FLUSH) 10 ML SYRINGE IVF (15:14)
[2023-12-30] MEDS: 0.9 % SODIUM CHLORIDE 250 ml IV (15:14)
[2023-12-31 14:08] VITALS: BP 152/74; PULSE 78; RESP 16; TEMP 36.8; O2SAT 98
[2023-12-31] MEDS: ERTAPENEM 1 GM in 0.9 % SODIUM CHLORIDE 100 ml 100 ML IVPB (14:20)
[2023-12-31] MEDS: SODIUM CHLORIDE 0.9 % (FLUSH) 10 ML SYRINGE IVF (14:21)
[2023-12-31 14:49] LABS: Basophils Percent Auto 0.3 % (0.0-3.0); Eosinophils Percent Auto 0.4 % (0.0-7.0); Hematocrit 36.6 % (37.0-53.0); Immature Granulocytes Pct Auto 1.8 %; Lymphocytes Percent Auto 12.1 % (20-44); Mean Corpuscular HGB Conc 33 gm/dL (32-36); Mean Corpuscular Hemoglobin 30 pg (26-34); Mean Corpuscular Volume 90 fL (80-100); Monocytes Percent Auto 8.4 % (0.0-11.0); Platelet Count* 356 K/uL (140-440); Red Blood Count 4.05 m/uL (4.30-5.90); White Blood Count* 13.45 K/uL (4.50-11.00)
[2023-12-31 14:53] LABS: Slide Review Reflex No
--- NOTE | 2023-12-31 15:08 | ONC.NURNOTE ---
Pt presents today for IV Ertapenem today; tolerated well. He notes he has been having drenching night sweats the last 2 night, Mon and Tues. He notes this is not common for him. Afeb/VSS. Denies nausea/vomiting, no abdominal pain. Tolerating clear liquid diet, however does mention he ate spicy soup last night. No rash, itching or other s/s allergic reaction to antibiotic. Currently scheduled to have 1 more dose Ertepenem tomorrow and f/u with Dr. Walker, gen surg following, with BMP. Reviewed new symptoms with Hospitalist, Dr. Sonia Noel. Labs drawn; CBC, CMP, CRP. She will update Dr. Walker today when labs back, to see if intervention needed prior to appt tomorrow. Ok for pt to go home after today's Ertepenem infusion, as he is afebrile and currently asymptomatic. Reviewed with pt extensively to go to ED if develops fever or abd pain, new nausea/vomiting; reinforced to check his temp at home. Reviewed with pt to keep his phone on and available in case his providers want him to come in to be evaluated before tomorrow. He verbalizes understanding.
[2023-12-31 15:24] LABS: Albumin* 3.9 g/dL (3.3-5.0); Chloride* 94 mmol/L (96-114)
[2023-12-31 15:25] LABS: Potassium* 3.9 mmol/L (3.6-5.1); Sodium* 133 mmol/L (135-149)
[2023-12-31 15:27] LABS: Bilirubin Total* 0.5 mg/dL (0.1-1.5); Creatinine* 0.9 mg/dL (0.5-1.5); Estimated Glomerular Filt Rate 95 ml/min
[2023-12-31 15:28] LABS: Alanine Aminotransferase* 43 U/L (4-50); Alkaline Phosphatase* 65 U/L (40-150); Anion Gap 6 mEq/L (7-15); Aspartate Amino Transferase* 34 U/L (12-35); Blood Urea Nitrogen* 11 mg/dL (7-30); Carbon Dioxide* 33 mmol/L (20-32); Glucose* 99 mg/dL (60-115); Total Protein* 6.8 g/dL (6.0-8.3)
[2023-12-31 18:48] LABS: C Reactive Protein* 14.2 mg/dL (0.5-1.0)
[2024-01-01 13:00] VITALS: BP 166/77; PULSE 74; RESP 16; TEMP 36.1; O2SAT 98
[2024-01-01] MEDS: ERTAPENEM 1 GM in 0.9 % SODIUM CHLORIDE 100 ml 100 ML IVPB (13:33)
[2024-01-01 13:37] LABS: Chloride* 98 mmol/L (96-114); Potassium* 3.9 mmol/L (3.6-5.1); Sodium* 134 mmol/L (135-149)
[2024-01-01] MEDS: 0.9 % SODIUM CHLORIDE 250 ml IV (13:37)
[2024-01-01 13:39] LABS: Creatinine* 0.9 mg/dL (0.5-1.5); Estimated Glomerular Filt Rate 95 ml/min
[2024-01-01 13:40] LABS: Anion Gap 8 mEq/L (7-15); Blood Urea Nitrogen* 12 mg/dL (7-30); Calcium* 8.9 mg/dL (8.4-10.6); Carbon Dioxide* 28 mmol/L (20-32); Glucose* 108 mg/dL (60-115)
[2024-01-01] MEDS: SODIUM CHLORIDE 0.9 % (FLUSH) 10 ML SYRINGE IVF (13:40)
[2024-01-02] MEDS: SODIUM CHLORIDE 0.9 % (FLUSH) 10 ML SYRINGE IVF (13:23)
[2024-01-02] MEDS: ERTAPENEM 1 GM in 0.9 % SODIUM CHLORIDE 100 ml 100 ML IVPB (13:23)
[2024-01-02] MEDS: 0.9 % SODIUM CHLORIDE 250 ml IV (13:23)
[2024-01-02 13:55] VITALS: BP 131/72; PULSE 67; RESP 14; TEMP 36.4
[2024-01-03 11:00] VITALS: BP 150/62; PULSE 68; RESP 16; TEMP 36.6; O2SAT 99
[2024-01-03] MEDS: ERTAPENEM 1 GM in 0.9 % SODIUM CHLORIDE 100 ml 100 ML IVPB (11:53)
[2024-01-03] MEDS: 0.9 % SODIUM CHLORIDE 250 ml IV (11:54)
[2024-01-04] MEDS: ERTAPENEM 1 GM in 0.9 % SODIUM CHLORIDE 100 ml 100 ML IVPB (10:54)
--- NOTE | 2024-01-04 12:04 | PC.NURSE ---
Patient tolerated infusion. IV patent and SL. VSS. on RA.
[2024-01-05 10:00] VITALS: BP 160/78; PULSE 63; RESP 15; TEMP 36; O2SAT 96
[2024-01-05] MEDS: ERTAPENEM 1 GM in 0.9 % SODIUM CHLORIDE 100 ml 100 ML IVPB (10:07)
[2024-01-05] MEDS: 0.9 % SODIUM CHLORIDE 250 ml IV (10:07)
[2024-01-05] MEDS: SODIUM CHLORIDE 0.9 % (FLUSH) 10 ML SYRINGE IVF (10:08)
[2024-01-06 09:53] VITALS: BP 138/78; PULSE 68; RESP 17; TEMP 37.1; O2SAT 98
[2024-01-06] MEDS: ERTAPENEM 1 GM in 0.9 % SODIUM CHLORIDE 100 ml 100 ML IVPB (10:13)
[2024-01-06] MEDS: 0.9 % SODIUM CHLORIDE 250 ml IV (10:45)
[2024-01-06] MEDS: SODIUM CHLORIDE 0.9 % (FLUSH) 10 ML SYRINGE IVF (10:45)
[2024-01-07 09:15] VITALS: BP 157/75; PULSE 61; RESP 16; TEMP 36.6; O2SAT 97
[2024-01-07] MEDS: 0.9 % SODIUM CHLORIDE 250 ml IV (09:31)
[2024-01-07] MEDS: ERTAPENEM 1 GM in 0.9 % SODIUM CHLORIDE 100 ml 100 ML IVPB (09:31)
[2024-01-07] MEDS: SODIUM CHLORIDE 0.9 % (FLUSH) 10 ML SYRINGE IVF (09:32)
[2024-01-07 09:51] LABS: Basophils Absolute Auto 0.05 K/uL (0.00-0.30); Basophils Percent Auto 0.5 % (0.0-3.0); Eosinophils Absolute Auto 0.11 K/uL (0.00-0.50); Eosinophils Percent Auto 1.2 % (0.0-7.0); Hematocrit 39.7 % (37.0-53.0); Hemoglobin* 13.2 gm/dL (13.5-17.5); Immature Granulocytes Abs Auto 0.23 K/uL (0.00-0.30); Immature Granulocytes Pct Auto 2.5 %; Lymphocytes Absolute Auto 2.38 K/uL (0.90-2.90); Lymphocytes Percent Auto 25.7 % (20-44); Mean Corpuscular HGB Conc 33 gm/dL (32-36); Mean Corpuscular Hemoglobin 30 pg (26-34); Mean Corpuscular Volume 91 fL (80-100); Monocytes Percent Auto 7.5 % (0.0-11.0); Neutrophils Absolute Auto 5.79 K/uL (1.7-7.0); Neutrophils Percent Auto 62.6 % (42.0-72.0); Platelet Count* 443 K/uL (140-440); Red Blood Count 4.37 m/uL (4.30-5.90); Slide Review Reflex No; White Blood Count* 9.25 K/uL (4.50-11.00)
[2024-01-07 10:24] LABS: C Reactive Protein* < 0.5 mg/dL (0.5-1.0)
--- NOTE | 2024-01-07 10:29 | ONC.NURNOTE ---
Call received from SCOUT Richards in the clinic. Patient does not need last dose of Ertapenum for tomorrow. Patient taken off schedule.
== END 2024-06-26 23:59 | disposition home or self-care (01) ==
LOC: CCIC 09:30
PROVIDERS: Family Medicine; Visit Provider Clinical Nurse Specialist
DX: K57.20 Diverticulitis of large intestine with perforation and abscess without bleeding (principal)
CPT/HCPCS: 36415; 80048; 80053; 85025; 86140; 96365; G0463; J1335; J7050